=== PATIENT | female | born 1945 | race Caucasian/White ===

== ENCOUNTER 2017-01-12 14:28 | Inpatient (IN) | payer MEDICARE ==
[~2017-01-12] VITALS: Ht 157.5 cm; Wt 132.5 kg
[~2017-01-12 14:28] MED LIST: AMLO10TA2 PO; AMLO2.5T PO; ASPI-496 PO; ATOR40TA78 PO; CARV-39 PO; CARV3.1212 PO; FURO-93 PO; FURO40TA6 PO; GABA-826 PO; LISI-167 PO; LISI40TA PO; METF500T4 PO; POTA10TA11 PO; POTA10TA5 HOMEMEDPO; WARF1TAB7 PO; WARF5TAB7 PO; WARF7.5T6 PO
[2017-01-12] MEDS ORDERED: RIVA10TA PO (15:23)
[2017-01-12] MEDS ORDERED: SODIUM CHLORIDE 0.9% 1,000ML IVBOLUS ONE (15:30)
[2017-01-12] MEDS ORDERED: SODIUM CHLORIDE FLUSH 10ML SYR IVF ONE (15:30)
[2017-01-12 15:42] LABS: HEMATOCRIT 34.5 % (34.6-47.8); HEMOGLOBIN 11.6 g/dL (11.7-16.4)
[2017-01-12 15:52] LABS: ASPARTATE AMINO TRANSFERASE 17 U/L (15-37); BLOOD UREA NITROGEN 30 mg/dL (7-18)
[2017-01-12 15:58] LABS: IS PT STATUS REG ER OR PRE ER? YES
[2017-01-12 16:51] LABS: PATH.CAST-FLAG NOT PRESENT; SPERM-FLAG NOT PRESENT; SRC-FLAG NOT PRESENT; XTAL-FLAG NOT PRESENT; YLC-FLAG NOT PRESENT
[2017-01-12] MEDS ORDERED: CEFTRIAXONE PMX 1GM/50ML 50 ML ONE (18:06)
[2017-01-12] MEDS: CEFTRIAXONE PMX 1GM/50ML 50 ML IVPB ONE ×2 (18:11→18:27)
[2017-01-12] MEDS: CEFTRIAXONE PMX 1GM/50ML 50 ML IV SCH (18:30)
[2017-01-12] MEDS ORDERED: POLYETHYLENE GLYCOL 17 GM PACKET PO PRN (19:00)
[2017-01-12] MEDS ORDERED: SODIUM CHLORIDE 0.9% 1,000 ML IV SCH (19:00)
[2017-01-12] MEDS ORDERED: ONDANSETRON 2MG/ML, 2ML IVPush PRN (19:00)
[2017-01-12] MEDS ORDERED: BISACODYL 10 MG SUPP PR PRN (19:00)
[2017-01-12] MEDS: INSULIN ASPART 100 UNITS/ML, PEN SQ-INSULIN SCH (21:00)
[2017-01-12 21:01] VITALS: BP 115/69
[2017-01-12 21:03] VITALS: BP 115/69
[2017-01-12] MEDS: ATORVASTATIN 40 MG TABLET PO SCH (21:49)
[2017-01-12] MEDS: CARVEDILOL 25 MG TABLET PO SCH (21:50)
[2017-01-13 02:45] VITALS: BP 103/67
[2017-01-13 05:41] LABS: ASPARTATE AMINO TRANSFERASE 14 U/L (15-37); BLOOD UREA NITROGEN 36 mg/dL (7-18)
[2017-01-13 06:04] LABS: HEMATOCRIT 28.6 % (34.6-47.8); HEMOGLOBIN 9.6 g/dL (11.7-16.4); WHITE BLOOD COUNT 8.4 x10^3/uL (3.4-10)
[2017-01-13] MEDS: INSULIN ASPART 100 UNITS/ML, PEN SQ-INSULIN SCH ×4 (07:00→21:00)
[2017-01-13 07:33] VITALS: BP 123/84
[2017-01-13 08:30] VITALS: BP 107/71
[2017-01-13] MEDS: ASPIRIN 81 MG TABLET EC PO SCH (09:11)
[2017-01-13] MEDS: POTASSIUM CHLORIDE 10 MEQ TABLET.ER PO SCH (09:11)
[2017-01-13] MEDS: CARVEDILOL 25 MG TABLET PO SCH ×2 (09:11→21:08)
[2017-01-13] MEDS: AMLODIPINE 5 MG TABLET PO SCH (09:12)
[2017-01-13] MEDS: RIVAROXABAN 10 MG TABLET PO SCH (09:12)
[2017-01-13] MEDS: SENNA/DOCUSATE TABLET PO SCH (09:12)
[2017-01-13] MEDS: GABAPENTIN 100 MG CAPSULE PO SCH (09:12)
[2017-01-13 13:44] VITALS: BP 107/62
[2017-01-13] MEDS: CEFTRIAXONE PMX 1GM/50ML 50 ML IV SCH (18:51)
[2017-01-13 20:16] VITALS: BP 120/69
[2017-01-13] MEDS: ATORVASTATIN 40 MG TABLET PO SCH (21:08)
[2017-01-13] MEDS ORDERED: DIPHENHYDRAMINE 50 MG/ML, 1ML IVPush ONE (21:30)
[2017-01-13] MEDS ORDERED: METOCLOPRAMIDE 5 MG/ML, 2ML IVPush ONE (21:30)
[2017-01-14 03:11] VITALS: BP 115/60
[2017-01-14] MEDS: INSULIN ASPART 100 UNITS/ML, PEN SQ-INSULIN SCH ×4 (07:00→20:08)
[2017-01-14 07:44] VITALS: BP 110/74
[2017-01-14] MEDS: SENNA/DOCUSATE TABLET PO SCH (09:00)
[2017-01-14] MEDS: RIVAROXABAN 10 MG TABLET PO SCH (09:00)
[2017-01-14] MEDS: AMLODIPINE 5 MG TABLET PO SCH (09:00)
[2017-01-14] MEDS: CARVEDILOL 25 MG TABLET PO SCH ×2 (09:01→20:08)
[2017-01-14] MEDS: POTASSIUM CHLORIDE 10 MEQ TABLET.ER PO SCH (09:01)
[2017-01-14] MEDS: GABAPENTIN 100 MG CAPSULE PO SCH (09:01)
[2017-01-14] MEDS: ASPIRIN 81 MG TABLET EC PO SCH (09:01)
[2017-01-14 13:03] VITALS: BP 99/56
[2017-01-14 13:05] VITALS: BP 118/69
[2017-01-14] MEDS: CEFTRIAXONE PMX 1GM/50ML 50 ML IV SCH (17:34)
[2017-01-14 20:00] VITALS: BP 108/66
[2017-01-14] MEDS: ATORVASTATIN 40 MG TABLET PO SCH (20:08)
[2017-01-15 01:35] VITALS: BP 104/62
[2017-01-15 06:17] LABS: BLOOD UREA NITROGEN 23 mg/dL (7-18)
[2017-01-15] MEDS: INSULIN ASPART 100 UNITS/ML, PEN SQ-INSULIN SCH ×3 (07:00→16:00)
[2017-01-15 08:33] VITALS: BP 131/87
[2017-01-15] MEDS ORDERED: AMLODIPINE 5 MG TABLET PO SCH (09:00)
[2017-01-15] MEDS: SENNA/DOCUSATE TABLET PO SCH (09:09)
[2017-01-15] MEDS: RIVAROXABAN 10 MG TABLET PO SCH (09:09)
[2017-01-15] MEDS: POTASSIUM CHLORIDE 10 MEQ TABLET.ER PO SCH (09:10)
[2017-01-15] MEDS: GABAPENTIN 100 MG CAPSULE PO SCH (09:10)
[2017-01-15] MEDS: ASPIRIN 81 MG TABLET EC PO SCH (09:10)
[2017-01-15] MEDS: CARVEDILOL 25 MG TABLET PO SCH (09:10)
[2017-01-15] MEDS ORDERED: AMLO5TAB2 PO (09:47)
[2017-01-15] MEDS ORDERED: CEFD300C37 PO (09:47)
[2017-01-15 12:41] VITALS: BP 120/70
[2017-01-15] MEDS ORDERED: RIVAROXABAN 20 MG TABLET PO SCH (17:00)
[2017-01-16] MEDS ORDERED: RIVAROXABAN 20 MG TABLET PO SCH (17:00)
== END 2017-01-15 18:00 | disposition home or self-care (01) | DRG 314 ==
LOC: ED 16:25 → EDIP 18:48 → 5SO 21:31 → 4WST 01-13 13:22
PROVIDERS: ADMIT Internal Medicine; ATTEND Internal Medicine
PROC: 0T9B70Z Drainage of Bladder with Drainage Device, Via Natural or Artificial Opening (ICD-10-PCS; principal; 2017-01-12)
DX: I95.9 Hypotension, unspecified (principal); N17.0 Acute kidney failure with tubular necrosis; E44.0 Moderate protein-calorie malnutrition; D68.69 Other thrombophilia; N12 Tubulo-interstitial nephritis, not specified as acute or chronic; I11.0 Hypertensive heart disease with heart failure; I50.32 Chronic diastolic (congestive) heart failure; I48.2 Chronic atrial fibrillation; Z68.43 Body mass index [BMI] 50.0-59.9, adult; B96.1 Klebsiella pneumoniae [K. pneumoniae] as the cause of diseases classified elsewhere; E11.9 Type 2 diabetes mellitus without complications; E66.01 Morbid (severe) obesity due to excess calories; T46.5X5A Adverse effect of other antihypertensive drugs, initial encounter; I25.10 Atherosclerotic heart disease of native coronary artery without angina pectoris; D64.9 Anemia, unspecified; Z82.49 Family history of ischemic heart disease and other diseases of the circulatory system; Z83.3 Family history of diabetes mellitus; Z85.3 Personal history of malignant neoplasm of breast; Z86.73 Personal history of transient ischemic attack (TIA), and cerebral infarction without residual deficits; Z90.710 Acquired absence of both cervix and uterus; Z90.13 Acquired absence of bilateral breasts and nipples; Z88.8 Allergy status to other drugs, medicaments and biological substances; Z88.5 Allergy status to narcotic agent; Y92.89 Other specified places as the place of occurrence of the external cause
CPT/HCPCS: 36415; 70450; 71010; 80048; 80053; 81001; 82040; 82962; 84484; 85025; 87040; 87077; 87086; 87186; 93005; 96360; 96361; J0696; J1815; J1200; J2765; J7030

== ENCOUNTER → 2017-12-10 | Outpatient (CLI) | payer MEDICARE ==
[~2017-12-10] MED LIST changes: +AMLO5TAB2 PO; +CEFD300C37 PO; -METF500T4 PO; +METF500T5 PO; +REGADENOSON 0.4 MG/5 ML SYRINGE ONE; +RIVA10TA PO; +WARF-36 PO; -WARF1TAB7 PO; +WARF1TAB74 PO; -WARF5TAB7 PO; +WARF7.5T46 PO; -WARF7.5T6 PO
== END | disposition home or self-care (01) ==
LOC: CVU 08:53
PROVIDERS: ATTEND Internal Medicine Cardiovascular Disease
DX: I08.3 Combined rheumatic disorders of mitral, aortic and tricuspid valves (principal); I48.91 Unspecified atrial fibrillation; I11.9 Hypertensive heart disease without heart failure; I25.10 Atherosclerotic heart disease of native coronary artery without angina pectoris; E11.9 Type 2 diabetes mellitus without complications; Z85.3 Personal history of malignant neoplasm of breast
CPT/HCPCS: 78452; 93017; 93306; A9502; C9898; J2785

== ENCOUNTER → 2017-12-31 | Outpatient (CLI) | payer MEDICARE ==
[~2017-12-31] MED LIST changes: -REGADENOSON 0.4 MG/5 ML SYRINGE ONE
[2017-12-31 12:49] LABS: ANION GAP 9 mmol/L (5-15); CALCIUM 9.7 mg/dL (8.5-10.1); CHLORIDE 99 mmol/L (98-107)
== END | disposition home or self-care (01) ==
LOC: CFH 10:44
PROVIDERS: ATTEND Internal Medicine Cardiovascular Disease
DX: E11.8 Type 2 diabetes mellitus with unspecified complications (principal); I10 Essential (primary) hypertension; R06.02 Shortness of breath
CPT/HCPCS: 36415; 80048

== ENCOUNTER 2018-04-08 10:08 | Inpatient (IN) | payer MEDICARE ==
[~2018-04-08] VITALS: Ht 165.1 cm; Wt 113.8 kg
[~2018-04-08 10:08] MED LIST changes: +AMLO-150 PO; -AMLO10TA2 PO; +AMLO10TA6 PO; -AMLO2.5T PO; +AMLO2.5T3 PO; -AMLO5TAB2 PO; +APIX5TAB PO; +CEPH-368 PO; +ERGO500017 PO; +FURO-92 PO; +LEVO750T6 PO; +METF500T17 PO; -METF500T5 PO; +SPIR25TA5 PO
[2018-04-08 10:38] LABS: BASOPHILS # (AUTO) 0.03 x10^3/uL (0-0.1); BASOPHILS % (AUTO) 0 % (0-1); EOSINOPHILS # (AUTO) 0.27 x10^3/uL (0-0.4); EOSINOPHILS % (AUTO) 4 % (1-7); LYMPHOCYTES # (AUTO) 1.13 x10^3/uL (1-3.4); LYMPHOCYTES % (AUTO) 17 % (22-44); MD NO; MEAN CORPUSCULAR HEMOGLOBIN 31.4 pg (27.0-34.8); MEAN CORPUSCULAR VOLUME 98.2 fL (80-100); MEAN PLATELET VOLUME 8.9 fL (7.4-10.4); MONOCYTES # (AUTO) 0.48 x10^3/uL (0.2-0.8); MONOCYTES % (AUTO) 7 % (2-9); NEUTROPHILS # (AUTO) 4.74 x10^3/uL (1.8-6.8); NEUTROPHILS % (AUTO) 71 % (42-75); PLATELET COUNT 285 x10^3/uL (130-400); RED BLOOD COUNT 2.74 x10^6/uL (3.82-5.3); RED CELL DISTRIBUTION WIDTH 17.5 % (9.6-15.2)
[2018-04-08 10:48] LABS: ALBUMIN 3.2 g/dL (3.4-5.0); ANION GAP 6 mmol/L (5-15); CALCIUM 8.5 mg/dL (8.5-10.1); CHLORIDE 107 mmol/L (98-107)
[2018-04-08 10:49] LABS: ALANINE AMINOTRANSFERASE 14 U/L (12-78); CREATININE 0.76 mg/dL (0.55-1.02)
[2018-04-08 10:53] LABS: ALKALINE PHOSPHATASE 107 U/L (45-117); BILIRUBIN,TOTAL 1.3 mg/dL (0.2-1.0); TROPONIN I < 0.015 ng/mL (0.000-0.045)
[2018-04-08] MEDS ORDERED: FUROSEMIDE 40 MG/4 ML IV ONE (11:00)
[2018-04-08] MEDS ORDERED: FUROSEMIDE 40 MG/4 ML ONE (11:01)
[2018-04-08] MEDS ORDERED: POLYETHYLENE GLYCOL 17 GM PACKET PO PRN (12:00)
[2018-04-08] MEDS ORDERED: SODIUM CHLORIDE FLUSH 10ML SYR IVF ONE (12:00)
[2018-04-08] MEDS ORDERED: ONDANSETRON 2MG/ML, 2ML IVPush PRN (12:00)
[2018-04-08] MEDS ORDERED: ONDANSETRON ODT 4 MG PO PRN (12:00)
[2018-04-08] MEDS ORDERED: ERGOCALCIFEROL 50,000 UNIT CAPSULE PO SCH (12:00)
[2018-04-08] MEDS: SODIUM CHLORIDE FLUSH 10ML SYR IVF PRN (12:41)
[2018-04-08 12:56] VITALS: BP 170/116
[2018-04-08] MEDS: LABETALOL 5MG/ML, 20ML IVPush PRN ×2 (13:14→18:00)
[2018-04-08 13:36] VITALS: BP 143/84
[2018-04-08 13:51] LABS: MICROSCOPIC NOT IND
[2018-04-08 13:57] LABS: CULTURE INDICATED? NO
[2018-04-08 17:27] LABS: FOLATE LEVEL 9.4 ng/mL (3.1-17.5); THYROID STIMULATING HORMONE 2.54 mIU/L (0.358-3.740)
[2018-04-08] MEDS: FUROSEMIDE 20 MG/2 ML IV SCH (17:38)
[2018-04-08] MEDS: DOXYCYCLINE 100MG TABLET PO SCH ×2 (17:38→19:48)
[2018-04-08 17:44] VITALS: BP 171/108
[2018-04-08] MEDS ORDERED: POTASSIUM CHLORIDE 40 MEQ in SODIUM CHLORIDE 0.9% 500 ML IV ONE (18:00)
[2018-04-08 18:33] VITALS: BP 156/82
[2018-04-08 19:07] VITALS: BP 136/79
[2018-04-08 20:00] VITALS: BP 134/80
[2018-04-08] MEDS: ATORVASTATIN 40 MG TABLET PO SCH (20:01)
[2018-04-08] MEDS: CARVEDILOL 25 MG TABLET PO SCH (20:02)
[2018-04-09 00:54] VITALS: BP 94/58
[2018-04-09 05:43] LABS: BASOPHILS # (AUTO) 0.02 x10^3/uL (0-0.1); BASOPHILS % (AUTO) 0 % (0-1); EOSINOPHILS # (AUTO) 0.31 x10^3/uL (0-0.4); EOSINOPHILS % (AUTO) 5 % (1-7); LYMPHOCYTES # (AUTO) 1.82 x10^3/uL (1-3.4); LYMPHOCYTES % (AUTO) 27 % (22-44); MD NO; MEAN CORPUSCULAR HEMOGLOBIN 32.6 pg (27.0-34.8); MEAN CORPUSCULAR HGB CONC 33.2 g/dL (32.4-35.8); MEAN CORPUSCULAR VOLUME 98.3 fL (80-100); MONOCYTES # (AUTO) 0.49 x10^3/uL (0.2-0.8); MONOCYTES % (AUTO) 7 % (2-9); NEUTROPHILS # (AUTO) 4.07 x10^3/uL (1.8-6.8); NEUTROPHILS % (AUTO) 61 % (42-75); PLATELET COUNT 249 x10^3/uL (130-400); RED CELL DISTRIBUTION WIDTH 16.9 % (9.6-15.2)
[2018-04-09 05:51] LABS: ALBUMIN 2.7 g/dL (3.4-5.0); ANION GAP 7 mmol/L (5-15); CHLORIDE 106 mmol/L (98-107)
[2018-04-09 06:02] LABS: ALANINE AMINOTRANSFERASE 13 U/L (12-78); ALKALINE PHOSPHATASE 86 U/L (45-117); BILIRUBIN,TOTAL 0.9 mg/dL (0.2-1.0); CREATININE 0.85 mg/dL (0.55-1.02)
[2018-04-09 08:43] VITALS: BP 138/73
[2018-04-09] MEDS ORDERED: MAGNESIUM SULFATE PMX 2GM/50ML 50 ML IV ONE (09:00)
[2018-04-09] MEDS ORDERED: POTASSIUM CHLORIDE 20 MEQ TAB.ER.PRT PO ONE ×2 (09:00→11:40)
[2018-04-09] MEDS: ASPIRIN 81 MG TABLET EC PO SCH (09:00)
[2018-04-09] MEDS: DOXYCYCLINE 100MG TABLET PO SCH ×2 (09:00→20:37)
[2018-04-09] MEDS: SENNA/DOCUSATE TABLET PO SCH (09:00)
[2018-04-09] MEDS: FUROSEMIDE 20 MG/2 ML IV SCH ×2 (09:01→17:59)
[2018-04-09] MEDS: CARVEDILOL 25 MG TABLET PO SCH ×2 (09:01→20:37)
[2018-04-09 13:25] VITALS: BP 116/63
[2018-04-09] MEDS: APIXABAN 5 MG TABLET PO SCH ×2 (13:50→20:37)
[2018-04-09 19:10] VITALS: BP 118/58
[2018-04-09] MEDS: ATORVASTATIN 40 MG TABLET PO SCH (20:37)
[2018-04-10 00:27] VITALS: BP 111/58
[2018-04-10 05:18] LABS: BASOPHILS # (AUTO) 0.03 x10^3/uL (0-0.1); BASOPHILS % (AUTO) 1 % (0-1); EOSINOPHILS # (AUTO) 0.33 x10^3/uL (0-0.4); EOSINOPHILS % (AUTO) 5 % (1-7); LYMPHOCYTES # (AUTO) 1.86 x10^3/uL (1-3.4); LYMPHOCYTES % (AUTO) 28 % (22-44); MD NO; MEAN CORPUSCULAR HEMOGLOBIN 32.1 pg (27.0-34.8); MEAN CORPUSCULAR HGB CONC 32.3 g/dL (32.4-35.8); MEAN CORPUSCULAR VOLUME 99.2 fL (80-100); MEAN PLATELET VOLUME 8.9 fL (7.4-10.4); MONOCYTES # (AUTO) 0.62 x10^3/uL (0.2-0.8); MONOCYTES % (AUTO) 9 % (2-9); NEUTROPHILS # (AUTO) 3.74 x10^3/uL (1.8-6.8); NEUTROPHILS % (AUTO) 57 % (42-75); PLATELET COUNT 270 x10^3/uL (130-400); RED CELL DISTRIBUTION WIDTH 16.8 % (9.6-15.2)
[2018-04-10 05:27] LABS: ALBUMIN 2.8 g/dL (3.4-5.0); ANION GAP 5 mmol/L (5-15); CALCIUM 8.4 mg/dL (8.5-10.1); CHLORIDE 107 mmol/L (98-107)
[2018-04-10 05:31] LABS: ALANINE AMINOTRANSFERASE 12 U/L (12-78); ALKALINE PHOSPHATASE 89 U/L (45-117); BILIRUBIN,TOTAL 0.6 mg/dL (0.2-1.0); CREATININE 0.75 mg/dL (0.55-1.02); TOTAL PROTEIN 6.2 g/dL (6.4-8.2)
[2018-04-10] MEDS: DOXYCYCLINE 100MG TABLET PO SCH ×2 (08:13→21:12)
[2018-04-10] MEDS: ASPIRIN 81 MG TABLET EC PO SCH (08:13)
[2018-04-10] MEDS: APIXABAN 5 MG TABLET PO SCH ×2 (08:13→21:00)
[2018-04-10] MEDS: CARVEDILOL 25 MG TABLET PO SCH ×2 (08:13→21:12)
[2018-04-10] MEDS: FUROSEMIDE 20 MG/2 ML IV SCH ×2 (08:13→17:48)
[2018-04-10] MEDS: SENNA/DOCUSATE TABLET PO SCH (08:18)
[2018-04-10 09:16] VITALS: BP 103/54
[2018-04-10 15:53] VITALS: BP 119/73
[2018-04-10 20:38] VITALS: BP 119/58
[2018-04-10] MEDS: ATORVASTATIN 40 MG TABLET PO SCH (21:12)
[2018-04-11 00:36] VITALS: BP 132/66
[2018-04-11 05:47] LABS: BASOPHILS # (AUTO) 0.03 x10^3/uL (0-0.1); BASOPHILS % (AUTO) 1 % (0-1); EOSINOPHILS # (AUTO) 0.33 x10^3/uL (0-0.4); EOSINOPHILS % (AUTO) 5 % (1-7); LYMPHOCYTES # (AUTO) 2.23 x10^3/uL (1-3.4); LYMPHOCYTES % (AUTO) 32 % (22-44); MD NO; MEAN CORPUSCULAR HEMOGLOBIN 32.8 pg (27.0-34.8); MEAN CORPUSCULAR HGB CONC 33.2 g/dL (32.4-35.8); MEAN CORPUSCULAR VOLUME 98.8 fL (80-100); MEAN PLATELET VOLUME 9.3 fL (7.4-10.4); MONOCYTES # (AUTO) 0.55 x10^3/uL (0.2-0.8); MONOCYTES % (AUTO) 8 % (2-9); NEUTROPHILS # (AUTO) 3.86 x10^3/uL (1.8-6.8); NEUTROPHILS % (AUTO) 55 % (42-75); PLATELET COUNT 278 x10^3/uL (130-400); RED BLOOD COUNT 2.48 x10^6/uL (3.82-5.3); RED CELL DISTRIBUTION WIDTH 16.7 % (9.6-15.2)
[2018-04-11 05:48] LABS: ALBUMIN 2.7 g/dL (3.4-5.0); ANION GAP 5 mmol/L (5-15); CALCIUM 8.3 mg/dL (8.5-10.1); CHLORIDE 103 mmol/L (98-107); CREATININE 0.84 mg/dL (0.55-1.02)
[2018-04-11 08:01] VITALS: BP 130/78
[2018-04-11] MEDS: SENNA/DOCUSATE TABLET PO SCH (09:00)
[2018-04-11] MEDS: ASPIRIN 81 MG TABLET EC PO SCH (09:04)
[2018-04-11] MEDS: APIXABAN 5 MG TABLET PO SCH (09:04)
[2018-04-11] MEDS: FUROSEMIDE 20 MG/2 ML IV SCH (09:04)
[2018-04-11] MEDS: DOXYCYCLINE 100MG TABLET PO SCH (09:04)
[2018-04-11] MEDS: CARVEDILOL 25 MG TABLET PO SCH (09:04)
[2018-04-11] MEDS ORDERED: FURO-93 PO ×3 (10:17→10:20)
[2018-04-11] MEDS ORDERED: ERGO500017 PO (10:17)
[2018-04-11] MEDS ORDERED: APIX5TAB PO (10:17)
[2018-04-11] MEDS ORDERED: DOXY100T PO (10:17)
[2018-04-11] MEDS ORDERED: POTA10CA PO (10:20)
== END 2018-04-11 14:40 | disposition home health service (06) | DRG 291 ==
LOC: ED 10:28 → EDIP 11:24 → 5SO 12:38
PROVIDERS: ADMIT Hospitalist; ATTEND Hospitalist
DX: I11.0 Hypertensive heart disease with heart failure (principal); J18.9 Pneumonia, unspecified organism; J96.21 Acute and chronic respiratory failure with hypoxia; D68.69 Other thrombophilia; I48.2 Chronic atrial fibrillation; I50.33 Acute on chronic diastolic (congestive) heart failure; D50.0 Iron deficiency anemia secondary to blood loss (chronic); E11.21 Type 2 diabetes mellitus with diabetic nephropathy; E11.65 Type 2 diabetes mellitus with hyperglycemia; E87.6 Hypokalemia; Z79.01 Long term (current) use of anticoagulants; Z86.73 Personal history of transient ischemic attack (TIA), and cerebral infarction without residual deficits; Z87.440 Personal history of urinary (tract) infections; Z90.13 Acquired absence of bilateral breasts and nipples; Z91.14 Patient's other noncompliance with medication regimen; Z88.8 Allergy status to other drugs, medicaments and biological substances
CPT/HCPCS: 36415; 70450; 71045; 80048; 80053; 81003; 82040; 82140; 82607; 82746; 83605; 83735; 83880; 84100; 84145; 84439; 84443; 84484; 85025; 87040; 93005; 96374; 99285; G0378; J1940; J3480; J3475; J7040

== ENCOUNTER → 2018-07-27 | Outpatient (CLI) | payer MEDICARE ==
[~2018-07-27] MED LIST changes: -AMLO10TA6 PO; +AMLO10TA8 PO; -AMLO2.5T3 PO; +AMLO2.5T5 PO; +DOXY100T PO; +POTA10CA PO; -RIVA10TA PO; +RIVA10TA2 PO
== END | disposition home or self-care (01) ==
LOC: CFH 12:43
DX: M85.89 Other specified disorders of bone density and structure, multiple sites (principal)
CPT/HCPCS: 77080